=== PATIENT | female | born 1990 | race Caucasian/White ===

== ENCOUNTER 2017-01-30 15:12 | Emergency (ER) | payer OTHER ==
[2017-01-30 15:41] VITALS: BP 114/72
[2017-01-30] MEDS ORDERED: METHYLPREDNISOLONE INJ 125 MG/2 ML SDV IV ONE (15:53)
[2017-01-30] MEDS ORDERED: METHYLPREDNISOLONE INJ 125 MG/2 ML SDV IM ONE (15:56)
--- NOTE | 2017-01-30 15:58 | ER Document Report ---
HPI - HPI Pain Level: 1 Notes: Patient is a 26-year-old female presents the ED complaining of a rash secondary to exposure to poison chantal. Patient states that she was exposed a few days ago but the rash started up yesterday. Her father was also with her at that time and he also developed a rash. Patient states she was outside someone's yard looking at the house potentially buy it which is where she was exposed. Patient states that she has itching without any discharge. Patient states that right now she feels it is mild, but patient states that she had a bad reaction to it last year were covered her entire body. Patient states that the initial rash started on her right lateral knee/leg, but has not showed up to her lower back and behind her left ear. Patient has no known drug allergies. She does not take any medicines daily. No significant past medical history otherwise. Patient does not smoke or do miscellaneous drugs. Denies any . She is tried using some [id number] anti-itch spray with minimal relief. Denies any headache, fever, URI, sore throat, swelling of the lips/tongue/throat , dysphagia, dysphasia, trouble breathing, wheeze, cough, shortness of breath, chest pain, palpitations, syncope, abdominal pain, nausea/vomiting/diarrhea, dysuria, joint pains, or any numbness or tingling. - ROS Notes: REVIEW OF SYSTEMS: CONSTITUTIONAL : Denies fever, chills, or sweats. Denies recent illness. EENT: Denies eye, ear, throat, or mouth pain or symptoms. Denies nasal or sinus congestion or discharge. Denies throat, tongue, or mouth swelling or difficulty swallowing. CARDIOVASCULAR: Denies chest pain. Denies palpitations or racing or irregular heart beat. Denies ankle edema. RESPIRATORY: Denies cough, cold, or chest congestion. Denies shortness of breath, difficulty breathing, or wheezing. GASTROINTESTINAL: Denies abdominal pain or distention. Denies nausea, vomiting , or diarrhea. Denies blood in vomitus, stools, or per rectum. Denies black, tarry stools. Denies constipation. GENITOURINARY: Denies difficulty urinating, painful urination, burning, frequency, blood in urine, or discharge. MUSCULOSKELETAL: Denies back or neck pain or stiffness. Denies joint pain or swelling. SKIN: see hpi HEMATOLOGIC : Denies easy bruising or bleeding. LYMPHATIC: Denies swollen, enlarged glands. NEUROLOGICAL: Denies dizziness or lightheadedness. Denies headache. Denies problems with gait or speech. Denies sensory loss, numbness, or tingling. ALL OTHER SYSTEMS REVIEWED AND NEGATIVE. Dictation was performed using [employer] voice recognition software - CARDIOVASCULAR Cardiovascular: DENIES: Chest pain - DERM Skin Color: Normal Past Medical History - Social History Smoking Status: Never Smoker Family History: Reviewed & Not Pertinent Patient has suicidal ideation: No Patient has homicidal ideation: No Renal/ Medical History: Denies: Hx Peritoneal Dialysis Surgical Hx: Negative - Immunizations Immunizations up to date: Yes Hx Diphtheria, Pertussis, Tetanus Vaccination: Yes Vertical Provider Document - CONSTITUTIONAL Notes: PHYSICAL EXAMINATION: GENERAL: Well-appearing, well-nourished and in no acute distress. HEAD: Atraumatic, normocephalic. EYES: Pupils equal round and reactive to light, extraocular movements intact, sclera anicteric, conjunctiva are normal. ENT: EAC clear b/l. TM's intact b/l without erythema, fluid, or perforation. Nares patent and without discharge. oropharynx clear without exudates. No tonsilar hypertrophy or erythema. Moist mucous membranes. No sinus tenderness. No angioedema appreciated. NECK: Normal range of motion, supple without lymphadenopathy. Non-tender, no swelling. LUNGS: Breath sounds clear to auscultation bilaterally and equal. No wheezes rales or rhonchi. HEART: Regular rate and rhythm without murmurs, rubs, gallops. Musculoskeletal: FROM to passive/active to extremities b/l. Strength 5+/5. Extremities: No cyanosis, clubbing, or edema b/l. Peripheral pulses 2+. Capillary refill less than 3 seconds. NEUROLOGICAL: Normal speech, normal gait. Normal sensory, motor exams PSYCH: Normal mood, normal affect. SKIN: Small maculopapular rash, minimal erythema, non-tender, no induration/ abscess/discharge (to rt lateral knee, low back, post. left ear). Resembles irritant contact dermatitis. - INFECTION CONTROL TRAVEL OUTSIDE OF THE [place] IN LAST 30 DAYS: No - RESPIRATORY O2 Sat by Pulse Oximetry: 99 Course - Re-evaluation Re-evalutation: 01/30/17 16:03 Patient is an afebrile, well-hydrated, 26-year-old female presents the ED with a contact dermatitis suspect probable poison chantal as reported in the history. Vitals are stable. PE otherwise unremarkable for any angioedema, abscess, systemic infection, or respiratory compromise. Solu-Medrol 125 mg given IM today. I will send her home with a steroid taper that she may begin tomorrow morning. I would like her to also utilize [id number] cortisone cream as needed along with p.o. Benadryl combined with p.o. Pepcid and/or Zantac. Patient to monitor closely for any worsening rash, angioedema, or signs of infection. Recheck with her PCM in 2-3 days. Consider consult with an personal care home administrator/flat knitter helper. Return to the ED with any worsening/concerning symptoms otherwise as reviewed. Patient is in agreement. - Vital Signs Vital signs: Temp Pulse Resp BP Pulse Ox 98.2 F 78 16 114/72 99 01/30/17 15:39 01/30/17 15:39 01/30/17 15:39 01/30/17 15:39 01/30/17 15:39 Discharge - Discharge Clinical Impression: Contact dermatitis Qualifiers: Contact dermatitis type: irritant Contact dermatitis trigger: non-food plants Qualified Code(s): L24.7 - Irritant contact dermatitis due to plants, except food Condition: Stable Disposition: HOME, SELF-CARE Additional Instructions: Keep the skin clean Avoid poison chantal/oak Use cortisone cream to affected areas May use oral benadryl/pepcid to help as well as needed Take steroid tapering dose as directed starting tomorrow morning Recheck with PCM in 2-3 days Consider consult with dermatology/personal care home administrator as well. Return to the ED with any worsening symptoms and/or development of fever, headache, swelling of lips/tongue/throat, chest pain, palpitations, syncope, shortness of breath, trouble breathing/trouble swallowing, abdominal pain, n/v/d , muscle weakness/paralysis, numbness/tingling, or other worsening symptoms that are concerning to you. Poison Chantal Poison chantal and poison oak can cause an itchy rash. This is called contact dermatitis. It's an allergy to an oil in the plant's leaves. The oil can be spread from clothing to skin, from pets to humans, or from one spot on the body to another. Washing thoroughly with soap immediately after exposure can prevent the rash. (Clothing should be washed as well.) If the oil is not removed, an itchy rash develops a few days after the exposure. Blisters may develop. Two to three weeks may be required for healing. Generally, treatment consists of: (1) an immediate thorough washing with soap to remove the oil, (2) application of a cortisone cream, and (3) antihistamines for itching. If the reaction is particularly severe, oral cortisone medicine may be required. If there are oozing areas, these can be soaked in epsom salts or Osmin's solution. Call the doctor if the rash worsens despite treatment, or if signs of infection occur such as spreading redness, red streaks, swollen glands, swelling , or fever. Prescriptions: Prednisone [Deltasone 10 mg Tablet] 10 mg PO ASDIR PRN #21 tablet PRN Reason: Referrals: DERMATOLOGY [Provider Group] - [facility] - Follow up as needed
== END 2017-01-30 16:26 | disposition home or self-care (01) ==
LOC: ER 15:12
DX: L24.7 Irritant contact dermatitis due to plants, except food (principal)
CPT/HCPCS: 99282; 96372; J2930